=== PATIENT | male | born 1995 | race Two or more races ===

== ENCOUNTER 2025-01-05 07:14 | Outpatient (CLI) | payer MEDICARE, BC, MEDICAID, SELFPAY ==
[2025-01-03 12:36] VITALS: BMI 23.8
--- NOTE | 2025-01-04 12:00 | PC.NURSE ---
patient liazon was completed and during liazon education,patient's mom states they will need PO medication to relax patient prior to starting IV or prepping patient since he is autistic and has down syndrome. New order received for valium 10mg po, patient's mother stated that he cant take PO pill unless they hide it in food, patient needst to remain NPO for procedure with sedation, order changed to versed syrup 5mg po. Mother states patient has taken versed syrup in past with good outcome.
[2025-01-05] VITALS (7 sets, daily range): BP systolic 82–103; BP diastolic 41–51; PULSE 69–82; RESP 13–16; O2SAT 93–99
--- NOTE | 2025-01-05 08:30 | XR_ITS ---
Examination: CT abdomen and pelvis without contrast. Coronal 3-D reconstructions. Sagittal 2-D reconstructions. IV conscious sedation Date and time of exam:January 05, 2025 1013 hours INDICATIONS: History hernia pain months CTDI: vol (mGy): 5.67 DLP: (mGycm): 372 Technique: Axial images of the abdomen have been obtained, 3 mm slice thickness Intravenous contrast material has not been administered. Under physician supervision, persistent 3.5 mg 50 mcg fentanyl administered intravenously for moderate sedation. Pulse oximetry, heart rate, blood pressure continuously monitored with an independent training observer present. The physician spent 15 minutes of [id number] sedation time with the patient Low dose protocols were performed. One or more of the following dose reduction techniques were used; automated exposure control, adjustment of the mA and/or KV according to patient size, use of iterative reconstruction technique. Findings: No focal liver or splenic lesions No gallstones No pancreatic or adrenal mass No renal or ureteral calculi, no hydronephrosis No bowel obstruction Intact urinary bladder No hernia defect IMPRESSION: No hernia defect identified
[2025-01-05] MEDS: MIDAZOLAM SYRUP 2 MG/ML 5ML CUP 5 MG PO (09:06)
[2025-01-05] MEDS: MIDAZOLAM SYRUP 2 MG/ML 5ML CUP 10 MG PO (09:38)
[2025-01-05] MEDS: SODIUM CHLORIDE 0.9% 500 ML 500 ML 999 ML IV ×2 (10:00→10:35)
[2025-01-05] MEDS: MIDAZOLAM INJ 1 MG/ML VIAL 2 ML 3 MG IV (10:11)
[2025-01-05] MEDS: fentaNYL CIT INJ 50 mCg/ML AMP 2ML IV (10:11)
== END 2025-01-05 11:30 | disposition home or self-care (01) ==
PROVIDERS: PCP Physician Assistant Medical; Referring Provider Physician Assistant Medical; Visit Provider Physician Assistant Medical
DX: R10.9 Unspecified abdominal pain (principal)
CPT/HCPCS: 74176; J2250; J3010; J7040; A9270